=== PATIENT | female | born 1990 | race Caucasian/White ===

== ENCOUNTER 2018-10-31 22:13 | Emergency (ER) | payer SELFPAY, OTHER ==
[2018-11-01] MEDS: LORAZEPAM 2 MG INJ IM (00:50)
== END 2018-11-01 01:55 | disposition home or self-care (01) ==
LOC: FTE 22:13
DX: F41.9 Anxiety disorder, unspecified (principal)
CPT/HCPCS: 93005; 96372; 99284-25